=== PATIENT | male | born 1985 | race Hispanic/Latino ===

== ENCOUNTER 2022-12-31 16:08 | Emergency (ER) | payer OTHER ==
[~2022-12-31] VITALS: Ht 195.6 cm; Wt 83.9 kg
[2022-12-31 16:10] VITALS: BP 131/80
[2022-12-31] MEDS ORDERED: MORPHINE 2 MG SYG IM ONE (18:30)
[2022-12-31] MEDS ORDERED: MORPHINE 2 MG SYG ONE (18:47)
[2022-12-31] MEDS ORDERED: ACET-2079 PO (19:08)
== END 2022-12-31 19:26 | disposition home or self-care (01) ==
LOC: EDH 16:08
DX: S52.201A Unspecified fracture of shaft of right ulna, initial encounter for closed fracture (principal); S43.101A Unspecified dislocation of right acromioclavicular joint, initial encounter; Z98.890 Other specified postprocedural states; W17.89XA Other fall from one level to another, initial encounter; Y93.55 Activity, bike riding; Y92.488 Other paved roadways as the place of occurrence of the external cause; Y99.8 Other external cause status
CPT/HCPCS: 29105; 29125; 73000; 73020; 73100; 96372